=== PATIENT | male | born 1980 | race Caucasian/White ===

== ENCOUNTER 2018-09-22 16:46 | Emergency (ER) | payer OTHER ==
[2018-09-22 17:11] VITALS: BP 112/75
--- NOTE | 2018-09-22 18:36 | UC ---
Skin Complaint HPI - HPI Summary HPI Summary: Patient picked off a callus from his left fourth toe 2 days ago. Since then has had some redness and tenderness to the area. No fever. No drainage from the wound. Up to date tetanus within 5 years. - History of Current Complaint Chief Complaint: UCWounds Time Seen by Provider: 09/22/18 18:07 Stated Complaint: TOE INFECTION Hx Obtained From: Patient Onset/Duration: Gradual Onset, Lasting Days, Still Present Timing: Constant Onset Severity: Moderate Current Severity: Moderate Pain Intensity: 6 Pain Scale Used: 0-10 Numeric Location: Discrete - LEFT 4TH TOE Character: Pain, Redness Aggravating Factor(s): Touch Alleviating Factor(s): Nothing Associated Signs & Symptoms: Positive: Tenderness - Allergy/Home Medications Allergies/Adverse Reactions: Allergies Allergy/AdvReac Type Severity Reaction Status Date / Time No Known Allergies Allergy Verified 09/22/18 17:11 Home Medications: Home Medications ALPRAZolam TAB* [Xanax TAB*] 0.25 mg PO Q6H PRN 09/22/18 [History Confirmed 01/03] PMH/Surg Hx/FS Hx/Imm Hx Previously Healthy: Yes - Surgical History Surgical History: Yes Surgery Procedure, Year, and Place: appy - Family History Known Family History: Positive: Non-Contributory - Social History Alcohol Use: Occasionally Substance Use Type: None Smoking Status (MU): Never Smoked Tobacco Review of Systems All Other Systems Reviewed And Are Negative: Yes Constitutional: Positive: Negative Skin: Positive: Other - ERYTHEMA AND OPEN WOUND Respiratory: Positive: Negative Cardiovascular: Positive: Negative Gastrointestinal: Positive: Negative Physical Exam Triage Information Reviewed: Yes Appearance: Well-Appearing, No Pain Distress, Well-Nourished Vital Signs: Initial Vital Signs Temp 97.5 F 09/22/18 17:06 Pulse 47 09/22/18 17:06 Resp 18 09/22/18 17:06 BP 112/75 09/22/18 17:06 Pulse Ox 98 09/22/18 17:06 Vital Signs Reviewed: Yes Eyes: Positive: Conjunctiva Clear ENT: Positive: Hearing grossly normal Neck: Positive: Supple Respiratory: Positive: No respiratory distress, No accessory muscle use Cardiovascular: Positive: Pulses Normal Abdomen Description: Positive: Soft Musculoskeletal: Positive: ROM Intact, No Edema Neurological: Positive: Alert Psychological: Positive: Age Appropriate Behavior Skin: Positive: Other - LEFT 4TH TOE SLIGHT ERYTHEMATOUS AND TENDER. 1CM OPEN WOUND LATERALLY. PINK BOTTOM. NO DRAINAGE. Course/Dx - Diagnoses Provider Diagnosis: Cellulitis of fourth toe, left Discharge - Sign-Out/Discharge Documenting (check all that apply): Patient Departure All imaging exams completed and their final reports reviewed: No Studies - Discharge Plan Condition: Stable Disposition: HOME Prescriptions: Cephalexin CAP* [Keflex 500 CAP*] 1,000 mg PO BID #28 cap Patient Education Materials: Cellulitis (ED) Referrals: Héctor Nieves MD [Medical Doctor] - If Needed Additional Instructions: KEEP YOUR WOUND COVERED WITH OINTMENT AND A NONSTICK, BULKY DRESSING. YOU NEED TO KEEP PRESSURE OFF IT TO ENCOURAGE HEALING. TRY TO AVOID HAVING YOUR FEET HOT AND SWEATY ALL DAY - VENTED SHOES OR SHOES OFF IF ABLE. CEPHALEXIN TO COVER FOR INFECTION. CHANGE BANDAGE DAILY AND NEEDED IF IT BECOMES SOILED OR WET. SEEK FOLLOW-UP IF YOU DEVELOP CONTINUED SPREADING REDNESS OF THE SKIN, PURULENT DRAINAGE, FEVER, INCREASED PAIN OR ANY OTHER CONCERNING SYMPTOMS. - Billing Disposition and Condition Condition: STABLE Disposition: Home
== END 2018-09-22 18:39 | disposition home or self-care (01) ==
LOC: UCEAST 16:46
DX: L03.032 Cellulitis of left toe (principal)
CPT/HCPCS: 99212; G0463

== ENCOUNTER 2018-10-04 08:12 | Emergency (ER) | payer OTHER ==
[2018-10-04] MEDS ORDERED: NS 0.9% 1000 ML** 2,000 ML IV ONE ×2 (08:40→10:31)
[2018-10-04] MEDS ORDERED: Ondansetron INJ* 2 MG/ML VIAL IV ONE ×2 (08:52→13:11)
[2018-10-04] MEDS ORDERED: Morphine VIAL* 4 MG/ML VIAL (1 ml vial) IV ONE ×2 (08:52→10:31)
[2018-10-04 09:17] LABS: ABS Basophils 0 10^3/ul (0-0.2); ABS Eosinophils 0.1 10^3/ul (0-0.6); ABS Lymphocytes 0.7 10^3/ul (1.0-4.8); ABS Monocytes 0.5 10^3/ul (0-0.8); ABS Neutrophils 6.9 10^3/ul (1.5-7.7); ABS Nucleated RBC 0 10^3/ul; Eosinophil % 0.8 %; Hematocrit 44 % (42-52); Lymphocyte % 8.2 %; Mean Corpuscular HGB Conc 35 g/dl (31-36); Mean Corpuscular Hemoglobin 32 pg (27-31); Mean Corpuscular Volume 92 fL (80-94); Mean Platelet Volume 8.8 fL (7.4-10.4); Nucleated Red Blood Cells % 0.1; Platelet Count 196 10^3/ul (150-450); Red Blood Count 4.71 10^6/ul (4.00-5.40); Red Cell Distribution Width 12 % (10.5-15); White Blood Count 8.1 10^3/ul (3.5-10.8)
[2018-10-04 09:27] LABS: INR 1.01 (0.77-1.02)
[2018-10-04 09:33] LABS: Albumin 4.2 g/dL (3.2-5.2); Albumin/Globulin Ratio 1.9 (1-3); BUN/Creatinine Ratio 6.5 (8-20); C Reactive Protein 18.28 mg/L (<8.01); Calcium 9.2 mg/dL (8.6-10.3); EGFR African American 93.6 (>60); EGFR Non-African American 77.3 (>60); Globulin 2.2 g/dL (2-4); Potassium 3.3 mmol/L (3.5-5.0); Total Protein 6.4 g/dL (6.4-8.9)
[2018-10-04 10:23] LABS: Urine Appearance Clear; Urine Bilirubin Negative (Negative); Urine Blood Negative (Negative); Urine Color Yellow; Urine Glucose Negative (Negative); Urine Ketones 1+ (Negative); Urine Nitrite Negative (Negative); Urine Protein Negative (Negative); Urine Specific Gravity 1.008 (1.010-1.030); Urine Urobilinogen Negative (Negative)
[2018-10-04] MEDS ORDERED: metroNIDAZOLE IV 500 MG/100ML* 500 MG/100 ML BAG IVPB ONE (10:31)
[2018-10-04] MEDS ORDERED: Ondansetron ODT TAB* 4 MG ONE (13:11)
[2018-10-04] MEDS ORDERED: Ondansetron ODT TAB* 4 MG PO ONE (13:13)
[2018-10-04 13:18] VITALS: BP 129/59
--- NOTE | 2018-10-05 07:02 | ED ---
Nausea/Vomiting/Diarrhea HPI - HPI Summary HPI Summary: Patient is a healthy 38-year-old male who presents to the ED with chief complaint of profuse watery diarrhea 1 week. He states he's been able to eat or drink. He has had episodes of incontinence. He endorses moderate to severe abdominal pain which is diffuse. Denies any urinary symptoms or back pain. Endorses mild headache. He states he did not eat anything abnormal. He has been on Keflex 4 days for a toe infection which he discontinued this medication 2 days prior to getting his current symptoms. He denies any fevers, sweats, chills. He endorses extreme fatigue due to not eating or drinking. He endorses nausea, denies any vomiting. - History of Current Complaint Chief Complaint: EDAbdPain Stated Complaint: ABD PAIN/RECTAL BLEEDING/VOMITING Time Seen by Provider: 10/04/18 08:35 Hx Obtained From: Patient Onset/Duration: Sudden Onset Timing: Constant Severity Initially: Moderate Severity Currently: Moderate Pain Intensity: 10 Pain Scale Used: 0-10 Numeric Aggravating Factor(s): Nothing Alleviating Factor(s): Nothing Diarrhea Presence: Yes Diarrhea Frequency: Every 15-60 minutes Diarrhea Duration: 3-7 days Diarrhea Characteristics: Watery - Risk Factors Influenza Risk Factors: Negative - Allergies/Home Medications Allergies/Adverse Reactions: Allergies Allergy/AdvReac Type Severity Reaction Status Date / Time cephalexin Allergy Diarrhea Verified 10/04/18 08:24 PMH/Surg Hx/FS Hx/Imm Hx Previously Healthy: Yes Endocrine/Hematology History: Denies: Hx Diabetes, Hx Thyroid Disease Cardiovascular History: Denies: Hx Hypertension Respiratory History: Denies: Hx Asthma, Hx Chronic Obstructive Pulmonary Disease (COPD) GI History: Denies: Hx Ulcer - Surgical History Surgery Procedure, Year, and Place: appy - Immunization History Hx Pertussis Vaccination: No Immunizations Up to Date: Yes Infectious Disease History: No Infectious Disease History: Denies: Hx Hepatitis, Hx Human Immunodeficiency Virus (HIV), Traveled Outside the [place] in Last 30 Days - Family History Known Family History: Positive: Non-Contributory - Social History Occupation: Employed Full-time Lives: With Family Alcohol Use: Occasionally Hx Substance Use: No Substance Use Type: Reports: None Smoking Status (MU): Never Smoked Tobacco Review of Systems Constitutional: Negative Negative: Fever, Chills, Fatigue, Skin Diaphoresis Negative: Palpitations, Chest Pain Negative: Shortness Of Breath, Cough Positive: Abdominal Pain, Diarrhea, Nausea. Negative: Vomiting Genitourinary: Negative Positive: no symptoms reported, see HPI Negative: Arthralgia, Myalgia Skin: Negative All Other Systems Reviewed And Are Negative: Yes Physical Exam Triage Information Reviewed: Yes Vital Signs On Initial Exam: Initial Vitals Temp Pulse Resp BP Pulse Ox 98.9 F 62 16 121/75 99 10/04/18 08:14 10/04/18 08:14 10/04/18 08:14 10/04/18 08:14 10/04/18 08:14 Vital Signs Reviewed: Yes Appearance: Positive: Well-Appearing, Well-Nourished Skin: Positive: Warm, Skin Color Reflects Adequate Perfusion Head/Face: Positive: Normal Head/Face Inspection Eyes: Positive: EOMI, CRUZ, Conjunctiva Clear Neck: Positive: Supple, No Lymphadenopathy Respiratory/Lung Sounds: Positive: Clear to Auscultation, Breath Sounds Present Cardiovascular: Positive: RRR, Pulses are Symmetrical in both Upper and Lower Extremities Abdomen Description: Positive: Soft. Negative: CVA Tenderness (R), CVA Tenderness (L) Bowel Sounds: Positive: Hypoactive Musculoskeletal: Positive: Normal, Strength/ROM Intact Neurological: Positive: Sensory/Motor Intact, Alert, Oriented to Person Place, Time, Speech Normal Psychiatric: Positive: Normal, Affect/Mood Appropriate, Anxious AVPU Assessment: Alert Diagnostics - Vital Signs Vital Signs Temp Pulse Resp BP Pulse Ox 10/04/18 13:18 99.7 F 46 16 129/59 99 10/04/18 13:00 46 99 10/04/18 12:50 50 129/59 100 10/04/18 12:20 49 127/70 98 10/04/18 12:00 52 98 10/04/18 11:50 55 121/66 100 10/04/18 11:20 49 121/68 99 10/04/18 11:06 16 10/04/18 11:00 46 98 10/04/18 10:51 48 97 10/04/18 09:20 53 120/73 98 10/04/18 09:12 18 10/04/18 08:14 98.9 F 62 16 121/75 99 - Laboratory Lab Results: Lab Results 10/04/18 10/04/18 10/04/18 Range/Units 08:50 09:10 09:10 WBC 8.1 (3.5-10.8) 10^3/ul RBC 4.71 (4.00-5.40) 10^6/ul Hgb 15.0 (14.0-18.0) g/dl Hct 44 (42-52) % MCV 92 (80-94) fL MCH 32 H (27-31) pg MCHC 35 (31-36) g/dl RDW 12 (10.5-15) % Plt Count 196 (150-450) 10^3/ul MPV 8.8 (7.4-10.4) fL Neut % (Auto) 85.0 % Lymph % (Auto) 8.2 % [place] % (Auto) 5.6 % Eos % (Auto) 0.8 % Baso % (Auto) 0.4 % Absolute Neuts (auto) 6.9 (1.5-7.7) 10^3/ul Absolute Lymphs (auto) 0.7 L (1.0-4.8) 10^3/ul Absolute Monos (auto) 0.5 (0-0.8) 10^3/ul Absolute Eos (auto) 0.1 (0-0.6) 10^3/ul Absolute Basos (auto) 0 (0-0.2) 10^3/ul Absolute Nucleated RBC 0 10^3/ul Nucleated RBC % 0.1 INR (Anticoag Therapy) (0.77-1.02) Sodium 141 (135-145) mmol/L Potassium 3.3 L (3.5-5.0) mmol/L Chloride 107 (101-111) mmol/L Carbon Dioxide 26 (22-32) mmol/L Anion Gap 8 (2-11) mmol/L BUN 7 (6-24) mg/dL Creatinine 1.07 (0.67-1.17) mg/dL Est GFR ( Amer) 93.6 (>60) Est GFR (Non-Af Amer) 77.3 (>60) BUN/Creatinine Ratio 6.5 L (8-20) Glucose 87 (70-100) mg/dL Lactic Acid (0.5-2.0) mmol/L Calcium 9.2 (8.6-10.3) mg/dL Magnesium 2.0 (1.9-2.7) mg/dL Total Bilirubin 1.00 (0.2-1.0) mg/dL AST 17 (13-39) U/L ALT 15 (7-52) U/L Alkaline Phosphatase 54 (34-104) U/L Total Creatine Kinase 96 (10-223) U/L C-Reactive Protein 18.28 H (<8.01) mg/L Total Protein 6.4 (6.4-8.9) g/dL Albumin 4.2 (3.2-5.2) g/dL Globulin 2.2 (2-4) g/dL Albumin/Globulin Ratio 1.9 (1-3) Lipase 17 (11.0-82.0) U/L Urine Color Urine Appearance Urine pH (5-9) Ur Specific [place] (1.010-1.030) Urine Protein (Negative) Urine Ketones (Negative) Urine Blood (Negative) Urine Nitrate (Negative) Urine Bilirubin (Negative) Urine Urobilinogen (Negative) Ur Leukocyte Esterase (Negative) Urine Glucose (Negative) Parasite Exam Pending 10/04/18 10/04/18 10/04/18 Range/Units 09:10 09:10 10:10 WBC (3.5-10.8) 10^3/ul RBC (4.00-5.40) 10^6/ul Hgb (14.0-18.0) g/dl Hct (42-52) % MCV (80-94) fL MCH (27-31) pg MCHC (31-36) g/dl RDW (10.5-15) % Plt Count (150-450) 10^3/ul MPV (7.4-10.4) fL Neut % (Auto) % Lymph % (Auto) % [place] % (Auto) % Eos % (Auto) % Baso % (Auto) % Absolute Neuts (auto) (1.5-7.7) 10^3/ul Absolute Lymphs (auto) (1.0-4.8) 10^3/ul Absolute Monos (auto) (0-0.8) 10^3/ul Absolute Eos (auto) (0-0.6) 10^3/ul Absolute Basos (auto) (0-0.2) 10^3/ul Absolute Nucleated RBC 10^3/ul Nucleated RBC % INR (Anticoag Therapy) 1.01 (0.77-1.02) Sodium (135-145) mmol/L Potassium (3.5-5.0) mmol/L Chloride (101-111) mmol/L Carbon Dioxide (22-32) mmol/L Anion Gap (2-11) mmol/L BUN (6-24) mg/dL Creatinine (0.67-1.17) mg/dL Est GFR ( Amer) (>60) Est GFR (Non-Af Amer) (>60) BUN/Creatinine Ratio (8-20) Glucose (70-100) mg/dL Lactic Acid 0.9 (0.5-2.0) mmol/L Calcium (8.6-10.3) mg/dL Magnesium (1.9-2.7) mg/dL Total Bilirubin (0.2-1.0) mg/dL AST (13-39) U/L ALT (7-52) U/L Alkaline Phosphatase (34-104) U/L Total Creatine Kinase (10-223) U/L C-Reactive Protein (<8.01) mg/L Total Protein (6.4-8.9) g/dL Albumin (3.2-5.2) g/dL Globulin (2-4) g/dL Albumin/Globulin Ratio (1-3) Lipase (11.0-82.0) U/L Urine Color Yellow Urine Appearance Clear Urine pH 5.0 (5-9) Ur Specific [place] 1.008 L (1.010-1.030) Urine Protein Negative (Negative) Urine Ketones 1+ A (Negative) Urine Blood Negative (Negative) Urine Nitrate Negative (Negative) Urine Bilirubin Negative (Negative) Urine Urobilinogen Negative (Negative) Ur Leukocyte Esterase Negative (Negative) Urine Glucose Negative (Negative) Parasite Exam Result Diagrams: 10/04/18 09:10 10/04/18 09:10 Lab Statement: Any lab studies that have been ordered have been reviewed, and results considered in the medical decision making process. Naus/Vom/Diarrhea Course/Dx - Course Course Of Treatment: During the course treatment, the patient is evaluated for profuse diarrhea. He is nontender on exam. Patient appears pale, nondiaphoretic. Vital signs are stable. He is afebrile. Labs obtained and are WNL. Stool cultures including ova and parasite and C. difficile obtained. C. difficile positive. Discussed findings with patient. He states he is uncomfortable going home and his case is discussed with the hospitalist. We are able to offer detention admission as patient is otherwise healthy with all labs and vital signs stable. He is given 3 L fluids and metronidazole IV he is sent home with vancomycin prescription and is encouraged to return if he develops any worsening symptoms. Precautions for home given. He understands and voices no concerns. is at bedside and also voices no concerns. - Differential Dx/Diagnosis Provider Diagnosis: C. difficile diarrhea Condition At Discharge: Stable Discharge - Sign-Out/Discharge Documenting (check all that apply): Patient Departure Patient Received Moderate/Deep Sedation with Procedure: No - Discharge Plan Condition: Stable Disposition: HOME Prescriptions: oxyCODONE/Acetamin 10/325(NF) [Percocet 10/325 (NF)] 1 tab PO QID #12 tab MDD 4 Vancomycin CAP* 125 mg PO QID #40 cap Patient Education Materials: Vancomycin (By mouth), C Diff (Clostridium Difficile) Infection (ED) Referrals: Héctor Nieves MD [Primary Care Provider] - Additional Instructions: Disinfected any restaurant he may have used Using a separate bathroom at this time Try to drink plenty of fluids including Gatorade Vancomycin 4 times daily 10 days Do not discontinue this medication, even if he began to feel better You may follow up with Dr. Hamlin in our [facility], I have given you a card If you continue to have symptoms and are unable to keep fluids down, he may return for IV fluids Wash hands frequently Discontinue metronidazole Continue with nausea medications as needed Take the oxycodone as needed for abdominal pain - Billing Disposition and Condition Condition: STABLE Disposition: Home
== END 2018-10-04 13:18 | disposition home or self-care (01) ==
LOC: ED 08:12
DX: A04.72 Enterocolitis due to Clostridium difficile, not specified as recurrent (principal)
CPT/HCPCS: 36415; 80053; 81003; 82272; 82550; 83605; 83690; 83735; 85025; 85610; 86140; 87040; 87045; 87046; 87177; 87209; 87328; 87329; 87493; 87899; 96361; 96374; 96375; 99284; A9270-GY; J2270; J2405; J3490

== ENCOUNTER 2018-11-01 21:57 | Emergency (ER) | payer OTHER ==
[2018-11-01 23:51] LABS: ABS Basophils 0.1 10^3/ul (0-0.2); ABS Eosinophils 0.1 10^3/ul (0-0.6); ABS Lymphocytes 1.8 10^3/ul (1.0-4.8); ABS Monocytes 0.4 10^3/ul (0-0.8); ABS Neutrophils 5.6 10^3/ul (1.5-7.7); ABS Nucleated RBC 0 10^3/ul; Eosinophil % 1.8 %; Hematocrit 45 % (36-46); Hemoglobin 15.8 g/dL (14.0-18.0); Lymphocyte % 22.7 %; Mean Corpuscular HGB Conc 35 g/dL (31-36); Mean Corpuscular Hemoglobin 32 pg (27-31); Mean Corpuscular Volume 92 fL (80-94); Mean Platelet Volume 9.8 fL (7.4-10.4); Nucleated Red Blood Cells % 0.2; Platelet Count 211 10^3/uL (150-450); Red Blood Count 4.92 10^6 /uL (4.18-5.48); Red Cell Distribution Width 12 % (10.5-15); White Blood Count 8.1 10^3/uL (3.5-10.8)
[2018-11-02 00:07] LABS: ALT 20 U/L (7-52); Albumin 4.5 g/dL (3.2-5.2); Albumin/Globulin Ratio 2.4 (1-3); Alkaline Phosphatase 70 U/L (34-104); BUN/Creatinine Ratio 17.7 (8-20); Blood Urea Nitrogen 17 mg/dL (6-24); CO2 Carbon Dioxide 30 mmol/L (22-32); Calcium 9.2 mg/dL (8.6-10.3); Chloride 107 mmol/L (101-111); EGFR African American 106.1 (>60); EGFR Non-African American 87.7 (>60); Globulin 1.9 g/dL (2-4); Glucose 94 mg/dL (70-100); Sodium 140 mmol/L (135-145); Total Protein 6.4 g/dL (6.4-8.9)
[2018-11-02 00:10] LABS: Anion Gap 3 mmol/L (2-11)
--- NOTE | 2018-11-02 02:59 | ED ---
Nausea/Vomiting/Diarrhea HPI - HPI Summary HPI Summary: Patient complains of diarrhea 3 hours prior to arrival in ED with intermittent abdominal cramping. Patient states history of C. difficile infection 2 since September. Tested positive in September. Took vancomycin 125 mg 4 times a day for 10 days. 2 days later started diarrhea again, was given vancomycin by PCP without lab testing for C. difficile. Patient finished last dose of second course of vancomycin 4 days ago, started diarrhea again today. Denies fever, cough, sore throat, CP, N/V, change in urine. Medical history is none. Abdominal surgical history is appendectomy. - History of Current Complaint Chief Complaint: EDNauseaVomitDiarrh Stated Complaint: REOCCURANCE OF CDIFF PER PT Time Seen by Provider: 11/02/18 00:46 Hx Obtained From: Patient Onset/Duration: Sudden Onset Severity Initially: Moderate Severity Currently: Moderate Pain Intensity: 6 Pain Scale Used: 0-10 Numeric Location: Diffuse Character: Cramping Aggravating Factor(s): Food Alleviating Factor(s): Nothing Nausea/Vomiting Presence: None Diarrhea Presence: Yes Diarrhea Frequency: Every 15-60 minutes - Allergies/Home Medications Allergies/Adverse Reactions: Allergies Allergy/AdvReac Type Severity Reaction Status Date / Time cephalexin Allergy Diarrhea Verified 11/01/18 22:03 PMH/Surg Hx/FS Hx/Imm Hx Endocrine/Hematology History: Denies: Hx Diabetes, Hx Thyroid Disease Cardiovascular History: Denies: Hx Hypertension Respiratory History: Denies: Hx Asthma, Hx Chronic Obstructive Pulmonary Disease (COPD) GI History: Reports: Other GI Disorders - C-diff Denies: Hx Ulcer History: Denies: Hx Dialysis Sensory History: Denies: Hx Eye Prosthesis Opthamlomology History: Denies: Hx Legally Blind EENT History: Denies: Hx Deafness Neurological History: Denies: Hx Dementia Psychiatric History: Denies: Hx Autism - Surgical History Surgery Procedure, Year, and Place: appy Infectious Disease History: No Infectious Disease History: Denies: Hx Hepatitis, Hx Human Immunodeficiency Virus (HIV), Traveled Outside the [place] in Last 30 Days - Family History Known Family History: Positive: Non-Contributory - Social History Alcohol Use: Occasionally Hx Substance Use: No Substance Use Type: Reports: None Smoking Status (MU): Never Smoked Tobacco Review of Systems Constitutional: Negative Eyes: Negative ENT: Negative Cardiovascular: Negative Respiratory: Negative Positive: Abdominal Pain, Diarrhea Genitourinary: Negative Musculoskeletal: Negative Skin: Negative Neurological: Negative Psychological: Normal All Other Systems Reviewed And Are Negative: Yes Physical Exam - Summary Physical Exam Summary: Abdomen mildly tender diffusely. Triage Information Reviewed: Yes Vital Signs On Initial Exam: Initial Vitals Temp Pulse Resp BP Pulse Ox 98.7 F 51 15 130/87 99 11/01/18 22:00 11/01/18 22:00 11/01/18 22:00 11/01/18 22:00 11/01/18 22:00 Vital Signs Reviewed: Yes Appearance: Positive: Well-Appearing Skin: Positive: Warm Head/Face: Positive: Normal Head/Face Inspection Eyes: Positive: Normal Neck: Positive: Supple Respiratory/Lung Sounds: Positive: Clear to Auscultation Cardiovascular: Positive: Normal Abdomen Description: Positive: Other: Musculoskeletal: Positive: Normal Neurological: Positive: Normal Psychiatric: Positive: Normal AVPU Assessment: Alert - [place] Coma Scale Best Eye Response: 4 - Spontaneous Best Motor Response: 6 - Obeys Commands Best Verbal Response: 5 - Oriented Coma Scale Total: 15 Diagnostics - Vital Signs Vital Signs Temp Pulse Resp BP Pulse Ox 11/02/18 02:00 45 96 11/02/18 01:58 52 119/86 97 11/02/18 01:28 46 111/82 97 11/02/18 01:00 48 96 11/02/18 00:59 45 125/71 96 11/02/18 00:30 58 96 11/01/18 22:00 98.7 F 51 15 130/87 99 - Laboratory Lab Results: Lab Results 11/01/18 11/01/18 Range/Units 23:43 23:43 WBC 8.1 (3.5-10.8) 10^3/uL RBC 4.92 (4.18-5.48) 10^6 /uL Hgb 15.8 (14.0-18.0) g/dL Hct 45 (36-46) % MCV 92 (80-94) fL MCH 32 H (27-31) pg MCHC 35 (31-36) g/dL RDW 12 (10.5-15) % Plt Count 211 (150-450) 10^3/uL MPV 9.8 (7.4-10.4) fL Neut % (Auto) 69.1 % Lymph % (Auto) 22.7 % [place] % (Auto) 5.4 % Eos % (Auto) 1.8 % Baso % (Auto) 1.0 % Absolute Neuts (auto) 5.6 (1.5-7.7) 10^3/ul Absolute Lymphs (auto) 1.8 (1.0-4.8) 10^3/ul Absolute Monos (auto) 0.4 (0-0.8) 10^3/ul Absolute Eos (auto) 0.1 (0-0.6) 10^3/ul Absolute Basos (auto) 0.1 (0-0.2) 10^3/ul Absolute Nucleated RBC 0 10^3/ul Nucleated RBC % 0.2 Sodium 140 (135-145) mmol/L Potassium TNP Chloride 107 (101-111) mmol/L Carbon Dioxide 30 (22-32) mmol/L Anion Gap 3 (2-11) mmol/L BUN 17 (6-24) mg/dL Creatinine 0.96 (0.67-1.17) mg/dL Est GFR ( Amer) 106.1 (>60) Est GFR (Non-Af Amer) 87.7 (>60) BUN/Creatinine Ratio 17.7 (8-20) Glucose 94 (70-100) mg/dL Calcium 9.2 (8.6-10.3) mg/dL Total Bilirubin 0.40 (0.2-1.0) mg/dL AST TNP ALT 20 (7-52) U/L Alkaline Phosphatase 70 (34-104) U/L Total Protein 6.4 (6.4-8.9) g/dL Albumin 4.5 (3.2-5.2) g/dL Globulin 1.9 L (2-4) g/dL Albumin/Globulin Ratio 2.4 (1-3) Result Diagrams: 11/01/18 23:43 11/01/18 23:43 Lab Statement: Any lab studies that have been ordered have been reviewed, and results considered in the medical decision making process. Naus/Vom/Diarrhea Course/Dx - Course Course Of Treatment: Patient complains of diarrhea 3 hours prior to arrival in ED with intermittent abdominal cramping. Patient states history of C. difficile infection 2 since September. Tested positive in September. Took vancomycin 125 mg 4 times a day for 10 days. 2 days later started diarrhea again, was given vancomycin by PCP without lab testing for C. difficile. Patient finished last dose of second course of vancomycin 4 days ago, started diarrhea again today. Denies fever, cough, sore throat, CP, N/V, change in urine. Medical history is none. Abdominal surgical history is appendectomy. Physical exam:Abdomen mildly tender diffusely. Vital signs within normal limits. No diarrhea for past 7 hours. Labs unremarkable. C. difficile negative. Patient advised to take another stool sample symptoms persist and follow-up with primary care and GI for further evaluation. Patient understands and approves of plan. - Differential Dx/Diagnosis Provider Diagnosis: Diarrhea Condition At Discharge: Stable Discharge - Sign-Out/Discharge Documenting (check all that apply): Patient Departure Patient Received Moderate/Deep Sedation with Procedure: No - Discharge Plan Condition: Stable Disposition: HOME Patient Education Materials: Acute Diarrhea (ED) Referrals: Héctor Nieves MD [Primary Care Provider] - Maxime Smith MD [Medical Doctor] - Additional Instructions: Treatment plenty of fluids to rehydrate. Eat yogurt or fermented foods to help repopulate colon with beneficial bacteria. If diarrhea continues take sample to primary care to be retested. If symptoms persist follow-up with GI doctor Luis for further evaluation. Return to the ED for any new or worsening symptoms - Billing Disposition and Condition Condition: STABLE Disposition: Home
[2018-11-02 04:06] VITALS: BP 123/79
== END 2018-11-02 04:04 | disposition home or self-care (01) ==
LOC: ED 21:57
DX: R19.7 Diarrhea, unspecified (principal); R10.817 Generalized abdominal tenderness; Z86.19 Personal history of other infectious and parasitic diseases; Z90.89 Acquired absence of other organs; Z88.1 Allergy status to other antibiotic agents
CPT/HCPCS: 36415; 80053; 85025; 87493; 99282